=== PATIENT | male | born 1965 | race Caucasian/White ===

== ENCOUNTER 2019-02-13 04:54 | Emergency (ER) | payer SELFPAY ==
--- NOTE | 2019-02-13 07:11 | ER Document Report ---
ED General - General Chief Complaint: High Blood Pressure Stated Complaint: REPORTS NECK PAIN AND HIGH BLOOD PRESSURE Time Seen by Provider: 02/13/19 07:10 Notes: 53 year old smoker with 5 days of progressive and worsening left sided neck pain. Woke up with it a bit sore and pain has increased and moved down left arm into fingers at times. No chest pain and no sob. He has a h/o htn and is a current every day smoker. Out of bp meds for 2 months. Takes hctz normally. Taking alleve at home with out relief. - Related Data Allergies/Adverse Reactions: No Known Allergies Allergy (Verified 02/13/19 15:10) Past Medical History - Social History Smoking Status: Current Every Day Smoker Frequency of alcohol use: Occasional Family History: Reviewed & Not Pertinent Patient has suicidal ideation: No Patient has homicidal ideation: No Review of Systems - Review of Systems Constitutional: No symptoms reported EENT: No symptoms reported Cardiovascular: No symptoms reported Respiratory: No symptoms reported Gastrointestinal: No symptoms reported Genitourinary: No symptoms reported Male Genitourinary: No symptoms reported Musculoskeletal: See HPI, Muscle stiffness, Neck pain. denies: No symptoms reported Skin: No symptoms reported Hematologic/Lymphatic: No symptoms reported Neurological/Psychological: No symptoms reported Physical Exam - Vital signs Vitals: Temp Pulse Resp BP Pulse Ox 97.4 F 93 18 196/120 H 96 02/13/19 04:59 02/13/19 04:59 02/13/19 04:59 02/13/19 04:59 02/13/19 04:59 Interpretation: Normal - General General appearance: Alert. No: Appears well In distress: Moderate - hold head leaning to right. In pain. - HEENT Head: Normocephalic, Atraumatic Eyes: Normal Pupils: PERRL - Respiratory Respiratory status: No respiratory distress Chest status: Nontender Breath sounds: Normal Chest palpation: Normal - Cardiovascular Rhythm: Regular Heart sounds: Normal auscultation Murmur: No - Abdominal Inspection: Normal Distension: No distension Bowel sounds: Normal Tenderness: Nontender Organomegaly: No organomegaly - Back Back: Normal, Nontender - Extremities General upper extremity: Normal inspection, Nontender, Normal color, Normal ROM, Normal temperature General lower extremity: Normal inspection, Nontender, Normal color, Normal ROM, Normal temperature, Normal weight bearing. No: Kareem's sign - Neurological Neuro grossly intact: Yes Cognition: Normal Orientation: AAOx4 Wilder Coma Scale Eye Opening: Spontaneous [place] Coma Scale Verbal: Oriented [place] Coma Scale Motor: Obeys Commands Wilder Coma Scale Total: 15 Speech: Normal Motor strength normal: LUE, RUE, LLE, RLE Sensory: Normal - Psychological Associated symptoms: Normal affect, Normal mood - Skin Skin Temperature: Warm Skin Moisture: Dry Skin Color: Normal Course - Re-evaluation Re-evalutation: 02/13/19 08:43 MDM 53 year old in moderate/ severe pain with left sided radicular neck pain and x ray of neck that is consistent with this. Feels a bit better after meds here. EKG shows no acute appearing abnormality and although pt is not without risks - htn that he does not currently treat and tob use - this is clearly musculoskeletal. We discussed follow up and he expressed understanding. Will restart low dose hctz too. - Vital Signs Vital signs: Temp Pulse Resp BP Pulse Ox 98.5 F 78 18 178/88 H 97 02/13/19 09:09 02/13/19 09:09 02/13/19 09:09 02/13/19 09:09 02/13/19 09:09 Discharge - Discharge Clinical Impression: Cervical pain (neck) Radiculopathy Qualifiers: Spinal region: cervical Qualified Code(s): M54.12 - Radiculopathy, cervical region Hypertension Qualifiers: Hypertension type: essential hypertension Qualified Code(s): I10 - Essential (primary) hypertension Condition: Good Disposition: HOME, SELF-CARE Instructions: Neck Injury (Cervical Strain) ([facility]) Additional Instructions: Stop smoking. See your doctor in follow up. Please return here for any problems or concerns. Prescriptions: Methylprednisolone [Medrol Dosepack (4 mg/Tab) 21 Tab/Dosepak] 4 mg PO ASDIR PRN #1 tab.ds.pk PRN Reason: Diazepam [Valium 5 mg Tablet] 5 mg PO TID #15 tablet Forms: Elevated Blood Pressure, Smoking Cessation Education
[2019-02-13] MEDS ORDERED: METOPROLOL SUCCINATE 25 MG TAB.SR.24H PO ONE (07:24)
[2019-02-13] MEDS ORDERED: DIAZEPAM 5 MG TABLET PO ONE (07:24)
[2019-02-13] MEDS ORDERED: KETOROLAC TROMETHAMINE 60 MG/2 ML SDV IM ONE (07:24)
--- NOTE | 2019-02-13 08:25 | RADIOLOGY REPORT (SQ) ---
EXAM DESCRIPTION: CHEST 2 VIEWS COMPLETED DATE/TIME: 02/13/2019 7:44 am REASON FOR STUDY: left shoulder pain/ htn COMPARISON: None. EXAM PARAMETERS: NUMBER OF VIEWS: two views TECHNIQUE: Digital Frontal and Lateral radiographic views of the chest acquired. RADIATION DOSE: NA LIMITATIONS: none FINDINGS: LUNGS AND PLEURA: No opacities, masses or pneumothorax. No pleural effusion. MEDIASTINUM AND HILAR STRUCTURES: No masses or contour abnormalities. HEART AND VASCULAR STRUCTURES: Heart normal size. No evidence for failure. BONES: No acute findings. HARDWARE: None in the chest. OTHER: No other significant finding. IMPRESSION: NO ACUTE RADIOGRAPHIC FINDING IN THE CHEST. TECHNICAL DOCUMENTATION: JOB ID: [id number] [employer]- All Rights Reserved Reading location - IP/workstation name: [email or web address]
--- NOTE | 2019-02-13 08:27 | RADIOLOGY REPORT (SQ) ---
EXAM DESCRIPTION: CERV SP 4 OR 5 VIEWS COMPLETED DATE/TIME: 02/13/2019 7:44 am REASON FOR STUDY: neck pain COMPARISON: None. NUMBER OF VIEWS: Five views. TECHNIQUE: AP, lateral, obliques and odontoid radiographic images acquired of the cervical spine. LIMITATIONS: Nonstandard radiographic positioning. The neck is held in flexion on the lateral view, and in convex leftward curvature on the frontal view. FINDINGS: MINERALIZATION: Normal. ALIGNMENT: No grows pathologic subluxation. Nonstandard radiographic positioning. The neck is held i n flexion on the lateral view, and in convex leftward curvature on the frontal view. VERTEBRAE: Vertebral bodies of normal height. DISCS: Disc space loss of height with anterior osteophyte formation at C3-4, C4-5, C5-6, and C6-7 FORAMINA: On the right side, there is moderate to high-grade C3-4 foraminal narrowing, and moderate C 5-6 foraminal narrowing. On the left side, mild foraminal narrowing is present at C3-4, C4-5, and C6-7. Moderate left foramin al narrowing at C5-6. LATERAL AND POSTERIOR ELEMENTS: Facets, lateral masses and spinous processes without significant find ings. HARDWARE: None in the spine. SOFT TISSUES: No masses or calcifications. Lung apices clear. OTHER: No other significant finding. IMPRESSION: Diffuse degenerative changes. Multilevel foraminal narrowing. TECHNICAL DOCUMENTATION: JOB ID: [id number] [employer]- All Rights Reserved Reading location - IP/workstation name: [email or web address]
[2019-02-13 09:10] VITALS: BP 178/88
--- NOTE | 2019-02-13 12:35 | EKG REPORT ---
SEVERITY:- NORMAL ECG - SINUS RHYTHM : Confirmed by: Sivan Manzano 13-Feb-2019 12:34:52
== END 2019-02-13 09:10 | disposition home or self-care (01) ==
LOC: ER 04:54
DX: M54.12 Radiculopathy, cervical region (principal); M54.2 Cervicalgia; I10 Essential (primary) hypertension; F17.200 Nicotine dependence, unspecified, uncomplicated
CPT/HCPCS: 93005; 99283; 96372; 72050; 71046; 93010; J1885

== ENCOUNTER 2019-02-13 14:57 | Emergency (ER) | payer SELFPAY ==
[2019-02-13] MEDS ORDERED: OXYCODONE-ACETAMINOPHEN 5-325 MG TABLET PO ONE (15:14)
--- NOTE | 2019-02-13 15:15 | ER Document Report ---
ED Medical Screen (RME) - General Chief Complaint: Neck Problem Stated Complaint: NECK PAIN/PINCHED NERVE Time Seen by Provider: 02/13/19 15:10 Mode of Arrival: Ambulatory Information source: Patient Notes: Patient is a 53-year-old male presenting to the emergency department for the second time today with complaints of neck pain. Patient reports discharge this morning with a nerve impingement. He states he was prescribed Valium. He took 10 mg of Valium approximately 1 hour prior to arrival. He states he has had severe pain since discharge, states that the medications are not working. Exam: Limited range of motion to the neck specifically when patient turns towards the right. I have greeted and performed a rapid initial assessment of this patient. A comprehensive ED assessment and evaluation of the patient, analysis of test results and completion of the medical decision making process will be conducted by additional ED providers. I have specifically instructed the patient or family members with the patient to immediately return to any nursing staff should anything change in the patient's condition or with their chief complaint. This medical record was dictated with voice recognizing software. There may be grammatical, syntax errors that are unintended. - Related Data Allergies/Adverse Reactions: No Known Allergies Allergy (Verified 02/13/19 15:10) Physical Exam - Vital signs Vitals: Temp Pulse Resp BP Pulse Ox 97.1 F 88 24 H 169/148 H 95 02/13/19 15:01 02/13/19 15:01 02/13/19 15:01 02/13/19 15:01 02/13/19 15:01 Course - Vital Signs Vital signs: Temp Pulse Resp BP Pulse Ox 97.1 F 88 24 H 169/148 H 95 02/13/19 15:01 02/13/19 15:01 02/13/19 15:01 02/13/19 15:01 02/13/19 15:01
--- NOTE | 2019-02-13 15:55 | RADIOLOGY REPORT (SQ) ---
EXAM DESCRIPTION: CT CERVICAL SPINE WITHOUT COMPLETED DATE/TIME: 02/13/2019 3:35 pm REASON FOR STUDY: severe neck pain, L side COMPARISON: None. TECHNIQUE: Axial images acquired through the cervical spine without intravenous contrast. Images re viewed with lung, soft tissue and bone windows. Reconstructed coronal and sagittal MPR images review ed. Images stored on PACS. All CT scanners at this facility use dose modulation, iterative reconstruction, and/or weight based d osing when appropriate to reduce radiation dose to as low as reasonably achievable (ALARA). [facility]: Dose Right [facility]: CareDose [facility]: Dose Right [facility]: Teradose 4D [facility]: Smart Fashion.me RADIATION DOSE: CT Rad equipment meets quality standard of care and radiation dose reduction techniq ues were employed. CTDIvol: 20.2 mGy. DLP: 491 mGy-cm. mGy. LIMITATIONS: None. FINDINGS: ALIGNMENT: Anatomic. MINERALIZATION: Normal. VERTEBRAL BODIES: No fractures or dislocation. DISCS: Multilevel disc space narrowing with osteophytes. FACETS, LATERAL MASSES, POSTERIOR ELEMENTS: Facet arthropathy. No fractures. No dislocation. No ac [place] findings. HARDWARE: None in the spine. VISUALIZED RIBS: No fractures. LUNG APICES AND SOFT TISSUES: No significant or acute findings. OTHER: No other significant finding. IMPRESSION: CHRONIC DEGENERATIVE CHANGES. NO ACUTE FINDINGS. TECHNICAL DOCUMENTATION: JOB ID: [id number] Quality ID # [id number]: Final reports with documentation of one or more dose reduction techniques (e.g., Au tomated exposure control, adjustment of the mA and/or kV according to patient size, use of iterative reconstruction technique) 2010 [employer]- All Rights Reserved Reading location - IP/workstation name: [email or web address]
--- NOTE | 2019-02-13 17:10 | ER Document Report ---
ED General - General Chief Complaint: Neck Injury Stated Complaint: NECK PAIN/PINCHED NERVE Time Seen by Provider: 02/13/19 15:10 Mode of Arrival: Ambulatory TRAVEL OUTSIDE OF THE [place] IN LAST 30 DAYS: No - Related Data Allergies/Adverse Reactions: No Known Allergies Allergy (Verified 02/13/19 15:10) Home Medications: [facility] Past Medical History - General Information source: Patient - Social History Smoking Status: Current Every Day Smoker Chew tobacco use (# tins/day): No Frequency of alcohol use: None Drug Abuse: None Family History: Reviewed & Not Pertinent Patient has suicidal ideation: No Patient has homicidal ideation: No - Past Medical History Cardiac Medical History: Reports: Hx Hypertension Physical Exam - Vital signs Vitals: Temp Pulse Resp BP Pulse Ox 97.1 F 88 24 H 169/148 H 95 02/13/19 15:01 02/13/19 15:01 02/13/19 15:01 02/13/19 15:01 02/13/19 15:01 - Notes Notes: Patient presents emergency department complaining of neck pain is been going on for the past 5 days. Says the pain came on gradually got progressively worse. Rating down his left arm. Denies any trauma falls or heavy lifting. Occasional pain in his neck before after lifting weights but it usually resolves within a day. Had any x-rays of his neck. He says the pain gets worse with movement. He denies any numbness or weakness in the arms or legs chest pain shortness of breath fevers cough nausea vomiting or abdominal pain no headaches or abnormal vision Patient was seen here earlier today at his x-rays of his chest and neck that showed degenerative changes of the neck treated with Valium and discharged home but says the pain is getting worse Patient also reports that he has a history of hypertension is been off his meds for about 1 to 2 months. Past medical history is significant for hypertension. Social history does smoke and occasional alcohol patient was out of town and is visiting for the holidays will be returning on Friday Review of systems pertinent positives and negatives in HPI otherwise all the systems were reviewed and acutely negative PHYSICIAN EXAM -vital signs are noted triage note and note from triage reviewed GENERAL: Well-appearing, well-nourished and in __mild distress____ HEAD: Atraumatic, normocephalic. EYES: Pupils equal round and reactive to light, extraocular movements intact, no nystagmus or photophobia sclera anicteric, conjunctiva are normal. ENT: nares patent, oropharynx clear without exudates. Moist mucous membranes. Good gag reflex face is nontender NECK: supple without lymphadenopathy minimal tenderness in the midline no step- off. There is tenderness extending into the trapezius muscles bilaterally. He has decreased range of motion secondary to pain LUNGS: Breath sounds clear to auscultation bilaterally and equal. No wheezes rales or rhonchi. HEART: Regular rate and rhythm without murmurs ABDOMEN: Soft, nontender, normoactive bowel sounds. EXTREMITIES: No deformity, no edema. NEUROLOGICAL: Alert and oriented x4. Cranial nerves he has symmetrical smile facies and shoulder shrug. His motor strength is 5/5 bilaterally in the upper and lower extremities. Toes downgoing. Sensation is intact to light touch and pinprick in the upper lower extremities is a negative Romberg and normal gait motor function in the left upper extremity is 5/5 including flexion extension of the elbow wrist and interosseous muscles PSYCH: Normal mood, normal affect. SKIN: Warm, Dry, normal turgor, no rashes or lesions noted. BACK-nontender in the midline Differential diagnosis radiculopathy fracture strain Course - Re-evaluation Re-evalutation: 02/13/19 17:35 ED patient is remained stable he was given Percocet with some improvement of his pain his blood pressure has improved also. Patient has no evidence of endorgan damage and has been off his medicines for 2 months. There is no indication to acutely lower his blood pressure started on his medicine today Medical decision making patient presents with a cervical radiculopathy. He has no neurological deficits pain is improved at this point I think he be discharged home. Discussed the findings with patient. Emphasized need for him to follow- up in 1 week to get his blood pressure rechecked again and further evaluation of his neck with possibly an MRI. Rest and drink plenty of fluids. He will be given a short course of narcotics and warned about the side effects of medication I emphasized need for him for follow-up for long-term care of his neck and his blood pressure he will be given a copy of his CT I discussed results of laboratory findings and diagnostic test with patient/family. The treatment plan was explained and I reviewed the discharge instructions with them. Questions were answered. The patient/family verbalizes understanding - Vital Signs Vital signs: Temp Pulse Resp BP Pulse Ox 97.1 F 88 24 H 173/110 H 95 02/13/19 15:01 02/13/19 15:01 02/13/19 15:01 02/13/19 16:21 02/13/19 15:01 - Diagnostic Test Radiology reviewed: Reports reviewed Discharge - Discharge Clinical Impression: Cervical pain (neck) Radiculopathy Qualifiers: Spinal region: cervical Qualified Code(s): M54.12 - Radiculopathy, cervical region Hypertension Qualifiers: Hypertension type: essential hypertension Qualified Code(s): I10 - Essential (primary) hypertension Disposition: HOME, SELF-CARE Instructions: Radiculopathy ([facility]) Additional Instructions: Please review the discharge instructions, they will tell you about your disease/injury and what you need to return to the ED for Return to the ED if you feel worse or can follow-up with your family doctor Follow-up with your family doctor in 2 to 3 days Rest and avoid heavy lifting The pain medications may cause drowsiness. Be careful if you are using crutches. Do not drive or operate machinery. Do not take Tylenol with the pain medication Your blood pressure was elevated today needs to be rechecked again in 1 to 2 weeks to determine if need to be on medication or have your medications adjusted. Untreated hypertension can cause heart attack stroke and kidney failure Is extremely important that you start taking your blood pressure medicines on a regular basis and have it rechecked again in 1 week Prescriptions: Hydrocodone/Acetaminophen [Drums 5-325 Tablet] 1 each PO Q6H PRN #12 tablet PRN Reason: Forms: Elevated Blood Pressure, Smoking Cessation Education
[2019-02-13 17:56] VITALS: BP 190/112
== END 2019-02-13 17:56 | disposition home or self-care (01) ==
LOC: ER 14:57
DX: M54.12 Radiculopathy, cervical region (principal); M54.2 Cervicalgia; F17.200 Nicotine dependence, unspecified, uncomplicated; I10 Essential (primary) hypertension
CPT/HCPCS: 72125; 99283